=== PATIENT | male | born 1985 | race Caucasian/White ===

== ENCOUNTER 2024-04-27 03:26 | Inpatient (IN) | payer OTHER ==
[~2024-04-27] VITALS: Ht 175.3 cm; Wt 81.6 kg
[2024-04-27] VITALS (12 sets, daily range): BP systolic 101–164; BP diastolic 70–98; TEMP 98–98.6; O2SAT 90–100
[2024-04-27] MEDS ORDERED: HALOPERIDOL LACTATE 5 MG/1 ML VIAL ONE ×3 (03:53→10:49)
[2024-04-27] MEDS ORDERED: LIDOCAINE 2% (GLYDO= UROJET) 10 ML JELLY MM ONE (03:54)
[2024-04-27] MEDS ORDERED: LORAZEPAM 2 MG/1 ML VIAL ONE ×5 (03:54→13:04)
[2024-04-27] MEDS: HALOPERIDOL LACTATE 5 MG/1 ML VIAL IM ONE (04:01)
[2024-04-27] MEDS: LORAZEPAM 2 MG/1 ML VIAL IV ONE ×4 (04:01→13:07)
[2024-04-27] MEDS: IV D5LR 1,000 ML IV ONE (04:15)
[2024-04-27] MEDS ORDERED: diphenhydrAMINE 50 MG/1 ML VIAL ONE ×3 (04:15→10:49)
[2024-04-27] MEDS: diphenhydrAMINE 50 MG/1 ML VIAL IV ONE ×3 (04:17→11:15)
[2024-04-27 04:18] LABS: BASOPHILS % (AUTO) 0.3 % (0.0-2.0); EOSINOPHILS % (AUTO) 0.2 % (0.0-7.0); HEMATOCRIT 49.8 % (36.7-47.1); HEMOGLOBIN 16.6 g/dL (12.5-16.3); LYMPHOCYTES # (AUTO) 1.1 K/uL (0.8-4.8); LYMPHOCYTES % (AUTO) 7.9 % (20.5-51.5); MEAN CORPUSCULAR HEMOGLOBIN 31.7 uug (23.8-33.4); MEAN CORPUSCULAR HGB CONC 33 g/dL (32.5-36.3); MEAN CORPUSCULAR VOLUME 94.9 fL (73.0-96.2); MONOCYTES # (AUTO) 0.3 K/uL (0.1-1.30); MONOCYTES % (AUTO) 2.3 % (0.0-11.0); NEUTROPHILS % (AUTO) 89.3 % (38.5-71.5); PLATELET COUNT (AUTO) 357 K/uL (152-348); RED BLOOD CELL COUNT(AUTO) 5.24 MIL/uL (4.06-5.63); RED CELL DISTRIBUTION WIDTH 11.8 % (12.1-16.2); WHITE BLOOD COUNT (AUTO) 14.5 K/uL (3.6-10.2)
[2024-04-27] MEDS: LIDOCAINE 2% (GLYDO= UROJET) 10 ML JELLY MM ONE (04:30)
[2024-04-27 04:42] LABS: ALANINE AMINOTRANSFERASE < 6 U/L (16-63); ALKALINE PHOSPHATASE 77 U/L (50-136); ASPARTATE AMINOTRANSFERASE < 5 U/L (15-37); BILIRUBIN,DIRECT 0.1 mg/dL (0.0-0.2); BILIRUBIN,TOTAL 0.6 mg/dL (0.2-1.0); CALCIUM 9.3 mg/dL (8.5-10.1); CARBON DIOXIDE 26 mmol/L (21-32); CHLORIDE 102 mmol/L (98-107); CREATININE 0.9 mg/dL (0.6-1.3); GLUCOSE 244 mg/dL (74-106); POTASSIUM 4.9 mmol/L (3.5-5.1); SODIUM SERUM 143 mmol/L (136-145); TOTAL PROTEIN, SERUM 7.6 g/dL (6.4-8.2); UREA NITROGEN, BLOOD 13 mg/dL (7-18)
[2024-04-27 04:43] LABS: *BILIRUBIN,URIN NEGATIVE (NEGATIVE); *BLOOD, URINE NEGATIVE (NEGATIVE); *CLARITY,URINE CLEAR (CLEAR); *COLOR,URINE YELLOW (YELLOW); *KETONES,URINE NEGATIVE (NEGATIVE); *PROTEIN,URINE 1+ (NEGATIVE); *UROBILINOGEN,URINE 0.2 E.U./dl (NORMAL); LEUKOCYTE ESTERASE ,URINE NEGATIVE (NEGATIVE); NITRITE, URINE NEGATIVE (NEGATIVE); UGLUCOSE TRACE (NEGATIVE)
[2024-04-27 04:58] LABS: DIFFERENTIAL COMMENT 1
[2024-04-27 05:00] LABS: ACETAMINOPHEN < 10.0 ug/mL (10-30); ALBUMIN < 3.4 g/dL (3.4-5.0)
[2024-04-27 05:22] LABS: THYROID STIMULATING HORMONE 1.916 mIU/mL (0.358-3.740)
[2024-04-27 05:30] LABS: *AMPHETAMINE, URINE NEGATIVE (NEGATIVE); *BARBITURATE, URINE NEGATIVE (NEGATIVE); *BENZODIAZEPINE, URINE NEGATIVE (NEGATIVE); *CANNABINOID, URINE NEGATIVE (NEGATIVE); *COCCAINE, URINE NEGATIVE (NEGATIVE); *OPIATE, URINE NEGATIVE (NEGATIVE); *PHENCYCLIDINE SCREEN,URINE NEGATIVE (NEGATIVE)
[2024-04-27 05:33] LABS: BACTERIA,URINE FEW /HPF (NONE SEEN); CALCIUM OXALATE CRYSTALS,UR FEW /HPF (NONE SEEN); RBC,URINE 0-3 /HPF (0-3); WBC,URINE 0-3 /HPF (0-3)
[2024-04-27 05:34] LABS: COARSE GRANULAR CASTS,URINE 0-3 /LPF
[2024-04-27] MEDS: HALOPERIDOL LACTATE 5 MG/1 ML VIAL IV ONE ×2 (06:01→12:05)
[2024-04-27 06:35] LABS: AMMONIA 58 umol/L (11-32)
[2024-04-27 06:43] LABS: FENTANYL, URINE NEGATIVE (NEGATIVE)
[2024-04-27 06:44] LABS: ETHANOL < 3 MG/DL (0-10)
[2024-04-27] MEDS ORDERED: CEFTRIAXONE /D5W 50ML IVPB **ER PYXIS IV ONE (09:16)
[2024-04-27] MEDS: CEFTRIAXONE 1 G in IV DEXTROSE 5% 50 ML IV ONE (09:32)
[2024-04-27 10:02] LABS: CSF GLUCOSE 128 mg/dL (40-70); CSF PROTEIN 49 mg/dL (15-45)
[2024-04-27] MEDS ORDERED: AZITHROMYCIN 500MG/ D5W 250ML IVPB **ER PYXIS ONLY IV ONE ×2 (10:18→23:19)
[2024-04-27] MEDS: AZITHROMYCIN IV 500 MG in IV DEXTROSE 5% 250 ML IV ONE (10:24)
[2024-04-27] MEDS ORDERED: hydrALAZINE HCL 20 MG/1 ML VIAL IV PRN (10:30)
[2024-04-27] MEDS ORDERED: ACETAMINOPHEN 325 MG TABLET PO PRN (10:30)
[2024-04-27] MEDS ORDERED: ONDANSETRON 4 MG/2 ML VIAL IV PRN (10:30)
[2024-04-27 10:56] LABS: CSF APPEARANCE CLEAR (CLEAR); CSF COLOR COLORLESS (COLORLESS); CSF VOLUME 10.5 mL
[2024-04-27 10:57] LABS: CSF TUBE NUMBER 1
[2024-04-27 10:58] LABS: CSF WHITE BLOOD CELL COUNT 3.3 /cumm (0-5)
[2024-04-27] MEDS ORDERED: MAGNESIUM SULFATE/D5W 200 ML ONE (11:41)
[2024-04-27] MEDS: MAGNESIUM SULFATE/D5W 100 ML IV SCH (11:45)
[2024-04-27] MEDS ORDERED: PROPOFOL 0 ML ONE (12:59)
[2024-04-27] MEDS: VANCOMYCIN IV 1,250 MG in IV DEXTROSE 5% 250 ML IV SCH ×2 (13:30→23:41)
[2024-04-27] MEDS ORDERED: INSULIN REGULAR, HUMAN 1000 UNIT/10 ML VIAL ONE (15:37)
[2024-04-27] MEDS: INSULIN REGULAR, HUMAN 1000 UNIT/10 ML VIAL SQ ONE (15:40)
[2024-04-27] MEDS ORDERED: INSULIN REGULAR, HUMAN 300 UNITS/3 ML VIAL SQ PRN ×2 (16:00→23:30)
[2024-04-27] MEDS ORDERED: DEXTROSE 50% 50 ML DISP.SYRIN IV PRN ×2 (16:00→23:30)
[2024-04-27] MEDS ORDERED: INSULIN REGULAR, HUMAN 1000 UNIT/10 ML VIAL SQ PRN (16:00)
[2024-04-27 16:08] LABS: ALBUMIN 3.8 g/dL (3.4-5.0); BILIRUBIN,TOTAL 0.8 mg/dL (0.2-1.0); CALCIUM 8.7 mg/dL (8.5-10.1); CREATININE 1.5 mg/dL (0.6-1.3); POTASSIUM 5.5 mmol/L (3.5-5.1)
[2024-04-27] MEDS ORDERED: BLOOD SUGAR DIAGNOSTIC 1 EACH STRIP VI SCH (16:30)
[2024-04-27] MEDS: LACTULOSE 20 G/30 ML LIQUID UDC PO SCH (17:00)
[2024-04-27] MEDS: ZIPRASIDONE MESYLATE 20 MG VIAL IM ONE (18:06)
[2024-04-27] MEDS: IV NS 1000 ML 1,000 ML IV PRN (18:06)
[2024-04-27] MEDS: BLOOD SUGAR DIAGNOSTIC 1 EACH STRIP VI SCH (18:07)
[2024-04-27] MEDS: IV NS 1000 ML 1,000 ML IV ONE (18:29)
[2024-04-27] MEDS: INSULIN REGULAR, HUMAN 100 UNIT in IV NORMAL SALINE 99 ML IV PRN (18:54)
[2024-04-27] MEDS ORDERED: IV 0.9% SODIUM CHLORID+ 20 KCL 1,000 ML ONE (20:04)
[2024-04-27] MEDS: CEFEPIME HCL 2 GM in IV DEXTROSE 5% 100 ML IV SCH (20:30)
[2024-04-27 20:51] LABS: ALBUMIN 3.5 g/dL (3.4-5.0); BILIRUBIN,TOTAL 0.6 mg/dL (0.2-1.0); CALCIUM 8.3 mg/dL (8.5-10.1); CREATININE 1.3 mg/dL (0.6-1.3); MAGNESIUM 2.3 mg/dL (1.8-2.4); POTASSIUM 4.1 mmol/L (3.5-5.1)
[2024-04-27] MEDS ORDERED: levoFLOXacin 500 MG/D5W 500 MG in PREMIXED 1 EACH IV SCH (21:00)
[2024-04-27] MEDS: HEPARIN SODIUM,PORCINE 5,000 UNITS/ML VIAL SQ SCH (21:09)
[2024-04-27] MEDS: IV 0.9% SODIUM CHLORID+ 20 KCL 1,000 ML IV ONE (21:20)
[2024-04-27 23:14] LABS: CALCIUM 8.2 mg/dL (8.5-10.1); CREATININE 1.2 mg/dL (0.6-1.3)
[2024-04-27 23:32] LABS: HIV-1 p24 ANTIGEN NON REACTIVE (NONREACTIVE); HIV-1/2 ANTIBODY NON REACTIVE (NONREACTIVE)
[2024-04-28] VITALS (14 sets, daily range): BP systolic 109–131; BP diastolic 70–89; TEMP 98–98.6; O2SAT 91–100
[2024-04-28 02:00] LABS: CALCIUM 8.3 mg/dL (8.5-10.1); CREATININE 1.2 mg/dL (0.6-1.3); MAGNESIUM 2.2 mg/dL (1.8-2.4); POTASSIUM 4.4 mmol/L (3.5-5.1)
[2024-04-28] MEDS: BLOOD SUGAR DIAGNOSTIC 1 EACH STRIP VI SCH (06:46)
[2024-04-28 07:21] LABS: BASOPHILS # (AUTO) 0.1 K/UL (0.0-0.2); BASOPHILS % (AUTO) 0.4 % (0.0-2.0); EOSINOPHILS # (AUTO) 0.1 K/uL (0.0-0.7); EOSINOPHILS % (AUTO) 0.8 % (0.0-7.0); HEMATOCRIT 39.9 % (36.7-47.1); HEMOGLOBIN 13.4 g/dL (12.5-16.3); LYMPHOCYTES # (AUTO) 2.2 K/uL (0.8-4.8); LYMPHOCYTES % (AUTO) 18.1 % (20.5-51.5); MEAN CORPUSCULAR HGB CONC 34 g/dL (32.5-36.3); MEAN CORPUSCULAR VOLUME 95.2 fL (73.0-96.2); NEUTROPHILS # (AUTO) 8.7 K/uL (1.8-8.9); NEUTROPHILS % (AUTO) 72.7 % (38.5-71.5); PLATELET COUNT (AUTO) 283 K/uL (152-348); RED BLOOD CELL COUNT(AUTO) 4.19 MIL/uL (4.06-5.63); RED CELL DISTRIBUTION WIDTH 11.8 % (12.1-16.2); WHITE BLOOD COUNT (AUTO) 11.9 K/uL (3.6-10.2)
[2024-04-28 07:43] LABS: DIFFERENTIAL COMMENT 1
[2024-04-28] MEDS: INSULIN REGULAR, HUMAN 1000 UNIT/10 ML VIAL SQ PRN (08:13)
[2024-04-28] MEDS: HALOPERIDOL LACTATE 5 MG/1 ML VIAL IM PRN (08:22)
[2024-04-28] MEDS: AZITHROMYCIN IV 500 MG in IV DEXTROSE 5% 250 ML IV SCH (08:22)
[2024-04-28 08:26] LABS: ALBUMIN 3.1 g/dL (3.4-5.0); BILIRUBIN,TOTAL 0.8 mg/dL (0.2-1.0); CALCIUM 7.8 mg/dL (8.5-10.1); CREATININE 1.1 mg/dL (0.6-1.3); POTASSIUM 4.5 mmol/L (3.5-5.1); TOTAL PROTEIN, SERUM 6.5 g/dL (6.4-8.2)
[2024-04-28] MEDS: INSULIN GLARGINE,HUM 300 UNITS/3 ML CARTRIDGE SQ SCH (08:54)
[2024-04-28] MEDS ORDERED: LORAZEPAM 2 MG/1 ML VIAL IV ONE (09:29)
[2024-04-28] MEDS ORDERED: CEFTRIAXONE /D5W 50ML IVPB **ER PYXIS IV ONE (21:07)
[2024-04-28] MEDS: CEFTRIAXONE 1 G in IV DEXTROSE 5% 50 ML IV SCH (21:10)
[2024-04-28] MEDS ORDERED: VANCOMYCIN IV 1,250 MG in IV DEXTROSE 5% 250 ML IV SCH (21:30)
[2024-04-29] VITALS: BP 130/81; TEMP 98; O2SAT 97
[2024-04-29 00:48] VITALS: O2SAT 97
[2024-04-29] MEDS: MORPHINE SULFATE 2 MG/1 ML DISP.SYRIN IVP PRN (03:38)
[2024-04-29 04:00] VITALS: BP 133/92; TEMP 98.5; O2SAT 97
[2024-04-29 07:22] LABS: BASOPHILS # (AUTO) 0.1 K/UL (0.0-0.2); BASOPHILS % (AUTO) 1.2 % (0.0-2.0); EOSINOPHILS # (AUTO) 0.2 K/uL (0.0-0.7); EOSINOPHILS % (AUTO) 2.3 % (0.0-7.0); HEMATOCRIT 38.3 % (36.7-47.1); HEMOGLOBIN 13.4 g/dL (12.5-16.3); LYMPHOCYTES # (AUTO) 1.7 K/uL (0.8-4.8); LYMPHOCYTES % (AUTO) 19.7 % (20.5-51.5); MEAN CORPUSCULAR HEMOGLOBIN 32.8 uug (23.8-33.4); MEAN CORPUSCULAR HGB CONC 35 g/dL (32.5-36.3); MEAN CORPUSCULAR VOLUME 93.6 fL (73.0-96.2); MONOCYTES # (AUTO) 0.5 K/uL (0.1-1.30); MONOCYTES % (AUTO) 6.3 % (0.0-11.0); NEUTROPHILS % (AUTO) 70.5 % (38.5-71.5); PLATELET COUNT (AUTO) 267 K/uL (152-348); RED BLOOD CELL COUNT(AUTO) 4.09 MIL/uL (4.06-5.63); RED CELL DISTRIBUTION WIDTH 11.6 % (12.1-16.2); WHITE BLOOD COUNT (AUTO) 8.6 K/uL (3.6-10.2)
[2024-04-29 07:38] LABS: MAGNESIUM 1.6 mg/dL (1.8-2.4); PHOSPHOROUS 3.4 mg/dL (2.5-4.9)
[2024-04-29 07:39] LABS: DIFFERENTIAL COMMENT 1
[2024-04-29 07:44] LABS: ALBUMIN 3.2 g/dL (3.4-5.0); BILIRUBIN,DIRECT 0.2 mg/dL (0.0-0.2); BILIRUBIN,TOTAL 0.8 mg/dL (0.2-1.0); CALCIUM 8.1 mg/dL (8.5-10.1); CREATININE 0.9 mg/dL (0.6-1.3); POTASSIUM 4.2 mmol/L (3.5-5.1); TOTAL PROTEIN, SERUM 6.3 g/dL (6.4-8.2)
[2024-04-29 07:45] VITALS: BP 157/76; TEMP 98.2; O2SAT 100
[2024-04-29 11:22] VITALS: BP 134/80; TEMP 98.4; O2SAT 100
[2024-04-29] MEDS: ZIPRASIDONE MESYLATE 20 MG VIAL IM PRN (13:33)
[2024-04-29] MEDS: MAGNESIUM OXIDE 400 MG TABLET PO ONE (14:52)
[2024-04-29 15:30] VITALS: BP 147/84; TEMP 97.8; O2SAT 99
== END 2024-04-29 17:30 | disposition left against medical advice (07) | DRG 871 ==
LOC: ER 03:35 → TRANSITION 15:43 → TELE-TD3 15:57 → CCU 16:45 → TELE3 04-28 07:58 → MEDSURG3 04-29 14:58
PROVIDERS: ADMIT Internal Medicine; ATTEND Internal Medicine
PROC: 009U3ZX Drainage of Spinal Canal, Percutaneous Approach, Diagnostic (ICD-10-PCS; principal; 2024-04-27)
DX: A41.9 Sepsis, unspecified organism (principal); E11.10 Type 2 diabetes mellitus with ketoacidosis without coma; G92.8 Other toxic encephalopathy; J96.01 Acute respiratory failure with hypoxia; J69.0 Pneumonitis due to inhalation of food and vomit; J18.9 Pneumonia, unspecified organism; E72.20 Disorder of urea cycle metabolism, unspecified; F14.20 Cocaine dependence, uncomplicated; I47.10 Supraventricular tachycardia, unspecified; I76 Septic arterial embolism; Z78.1 Physical restraint status; F19.10 Other psychoactive substance abuse, uncomplicated; F10.20 Alcohol dependence, uncomplicated; Z86.73 Personal history of transient ischemic attack (TIA), and cerebral infarction without residual deficits; I45.10 Unspecified right bundle-branch block; I25.2 Old myocardial infarction; Z53.29 Procedure and treatment not carried out because of patient's decision for other reasons; Z88.0 Allergy status to penicillin; J98.4 Other disorders of lung
CPT/HCPCS: 36415; 70450; 71045; 83735; 84100; 84157; 84443; 84484; 85025; 85730; 86803; 87040; 87806; 89051; 93307; 94760; A4606; A4663; C1758; G0378; G0480; J0456; J0692; J0696; J1200; J1630; J1644; J1815; J1956; J2060; J2270; J3475; J3486; J3490; J7040; J7050